=== PATIENT | female | born 1970 | race Caucasian/White ===

== ENCOUNTER 2017-01-11 12:22 | Outpatient (CLI) | payer OTHER ==
--- NOTE | 2017-01-11 14:21 | ULT ---
RENAL ULTRASOUND: 01/11/2017 HISTORY: Chronic kidney disease. COMPARISON: None. TECHNIQUE: Multiplanar Armando-scale sonographic imaging of the kidneys and urinary bladder is obtained. FINDINGS: The right kidney measures 8.8 x 3.8 x 3.8 cm, and the left kidney measures 2.4 x 3.2 x 4 cm. There is no discrete renal mass, hydronephrosis, or renal stone appreciated on either side. The urinary bladder appears grossly unremarkable, with a pre-void urinary bladder volume of approxim ately 775 mL. Post-void urinary bladder volume is approximately 11 mL. IMPRESSION: No hydronephrosis. POS: [facility]
== END 2017-01-11 12:23 | disposition home or self-care (01) ==
LOC: MADULT 12:22
PROVIDERS: ATTEND Internal Medicine Nephrology
DX: N18.2 Chronic kidney disease, stage 2 (mild) (principal)
CPT/HCPCS: 76770